=== PATIENT | male | born 1990 | race Caucasian/White ===

== ENCOUNTER 2020-12-22 11:39 | Outpatient (REF) | payer OTHER, SELFPAY ==
[2020-12-22 14:21] LABS: SARS COV2 PCR INHOUSE NEGATIVE (Negative)
== END 2020-12-22 11:40 | disposition home or self-care (01) ==
LOC: HO.LAB 11:39
PROVIDERS: Visit Provider Internal Medicine
DX: Z20.822 Contact with and (suspected) exposure to COVID-19 (principal)
CPT/HCPCS: C9803; U0003

== ENCOUNTER 2020-12-26 09:39 | Outpatient (REF) | payer OTHER, SELFPAY ==
[2020-12-26 13:41] LABS: SARS COV2 PCR INHOUSE NEGATIVE (Negative)
== END 2020-12-26 09:40 | disposition home or self-care (01) ==
LOC: HO.LAB 09:39
PROVIDERS: Visit Provider Internal Medicine
DX: Z20.822 Contact with and (suspected) exposure to COVID-19 (principal)
CPT/HCPCS: C9803; U0003